=== PATIENT | male | born 1940 | race Caucasian/White ===

== ENCOUNTER → 2019-10-11 | Outpatient (CLI) | payer OTHER ==
[~2019-10-11] MED LIST: ACETAMINOPHEN-1 EAC1 PO; ALEVE220 M1 PO; ASPIRIN EC325 M1 PO; KEFLEX500 MG PO; LISINOPRIL; SYNTHROID150 MCG PO; VYTORIN 10-801 EACH PO
== END ==
LOC: MRI 09:06
DX: M19.072 Primary osteoarthritis, left ankle and foot (principal); L97.529 Non-pressure chronic ulcer of other part of left foot with unspecified severity